=== PATIENT | male | born 1960 | race Two or more races ===

== ENCOUNTER 2019-12-20 00:49 | Emergency (ER) | payer BC ==
[2019-12-20 01:29] LABS: CHLORIDE,CL 102 mEq/L (98-106); SODIUM,NA 139 mEq/L (136-145)
--- NOTE | 2019-12-20 01:49 | EDM.PDOC ---
ED HPI GENERAL MEDICAL PROBLEM - General Chief Complaint: General Stated Complaint: palpitations Time Seen by Provider: 12/20/19 01:15 Source of Information: Reports: Patient History Limitations: Reports: No Limitations - History of Present Illness INITIAL COMMENTS - FREE TEXT/NARRATIVE: Jarrod is a pleasant 59 yo male who presents to the ED with concerns of his heart beating fast this evening. He states symptoms started around midnight when he laid down to go to sleep. States he had 3 episodes that each lasting less than 10 seconds. Admits he sat up between each episode and it would immediately go away. He questions if it is his pillow as it isn't very thick. States since the 3rd episode he hasn't had any symptoms since. Denies any shortness of breath or chest pain. No discomfort when he was symptomatic. States he does have a history of high blood pressure and cholesterol, which he is medically treated for. Has no known history of heart disease. Denies ever being a smoker or drinker. Overall, states he lives a healthy lifestyle. Denies any family history of heart disease. Denies any caffeine use, no coffee or soda. States he typically drinks water or juices. Denies any history of anxiety but admits when he was laying down he had been thinking of his brother who had a few months ago. Onset Date: 12/20/19 Onset Time: 00:00 Duration: Resolved Prior to Arrival Improves with: Reports: Movement Worsens with: Reports: Immobilization Associated Symptoms: Reports: No Other Symptoms - Related Data Allergies Allergy/AdvReac Type Severity Reaction Status Date / Time No Known Allergies Allergy Verified 12/20/19 00:51 Home Meds: Home Meds Aspirin [Aspirin EC] 81 mg PO DAILY 12/20/19 [History] Losartan [Cozaar] 50 mg PO DAILY 12/20/19 [History] Simvastatin 20 mg PO DAILY 12/20/19 [History] amLODIPine [Norvasc] 5 mg PO DAILY 12/20/19 [History] hydroCHLOROthiazide [Hydrochlorothiazide] 25 mg PO DAILY 12/20/19 [History] Past Medical History HEENT History: Reports: None Cardiovascular History: Reports: High Cholesterol, Hypertension Respiratory History: Reports: None Gastrointestinal History: Reports: None Genitourinary History: Reports: None Musculoskeletal History: Reports: None Neurological History: Reports: None Psychiatric History: Reports: None - Past Surgical History GI Surgical History: Reports: Hernia Repair/Other Social & Family History - Family History Family Medical History: Noncontributory - Tobacco Use Smoking Status *Q: Never Smoker Second Hand Smoke Exposure: No - Caffeine Use Caffeine Use: Reports: None - Alcohol Use Alcohol Use History: No - Recreational Drug Use Recreational Drug Use: No Drug Use in Last 12 Months: No - Living Situation & Occupation Living situation: Reports: Single Occupation: Retired ED ROS GENERAL - Review of Systems Review Of Systems: See Below Constitutional: Reports: No Symptoms HEENT: Reports: No Symptoms Respiratory: Denies: Shortness of Breath, Wheezing, Pleuritic Chest Pain, Cough Cardiovascular: Reports: Blood Pressure Problem, Palpitations. Denies: Chest Pain, Dyspnea on Exertion, Edema, Lightheadedness, Orthopnea, Syncope GI/Abdominal: Reports: No Symptoms : Reports: No Symptoms Musculoskeletal: Reports: No Symptoms Skin: Reports: No Symptoms Neurological: Reports: No Symptoms. Denies: Dizziness Psychiatric: Reports: No Symptoms ED EXAM, GENERAL - Physical Exam Exam: See Below Exam Limited By: No Limitations General Appearance: Alert, WD/WN, No Apparent Distress Ears: Normal External Exam, Normal Canal, Hearing Grossly Normal, Normal TMs Nose: Normal Inspection, Normal Mucosa, No Blood Throat/Mouth: Normal Inspection, Normal Lips, Normal Teeth, Normal Gums, Normal Oropharynx, Normal Voice, No Airway Compromise Head: Atraumatic, Normocephalic Neck: Normal Inspection, Supple Respiratory/Chest: No Respiratory Distress, Lungs Clear, Normal Breath Sounds, No Accessory Muscle Use Cardiovascular: Normal Peripheral Pulses, Regular Rate, Rhythm, No Edema, No Murmur GI/Abdominal: Normal Bowel Sounds, Soft, Non-Tender, No Organomegaly, No Distention, No Mass Back Exam: Normal Inspection Extremities: Normal Inspection, Non-Tender, No Pedal Edema Neurological: Alert, Oriented, Normal Cognition, No Motor/Sensory Deficits Psychiatric: Normal Affect, Normal Mood Skin Exam: Warm, Dry, Intact, Normal Color, No Rash EKG INTERPRETATION EKG Date: 12/20/19 Time: 00:53 Rhythm: NSR [place]: Normal P-Wave: Present QRS: Normal ST-T: Normal QT: Normal Comparison: NA - No Prior EKG Course - Vital Signs Last Recorded V/S: Last Vital Signs Temp 98 F 12/20/19 01:07 Pulse 72 12/20/19 01:07 Resp 20 12/20/19 01:07 BP 110/70 12/20/19 01:07 Pulse Ox 97 12/20/19 01:07 - Orders/Labs/Meds Orders: Active Orders 24 hr Category Date Time Status Chest 2V [CR] Stat Exams 12/20/19 00:52 Taken Labs: Laboratory Tests 12/20/19 12/20/19 Range/Units 01:05 01:05 WBC 4.5 L (5.0-10.0) 10^3/uL RBC 4.53 (4.50-6.00) 10^6/uL Hgb 13.8 L (14.0-18.0) g/dL Hct 40.1 (40.0-54.0) % MCV 88.5 (82.0-94.0) fL MCH 30.5 (27.0-32.0) pg MCHC 34.4 (33.0-38.0) g/dL RDW Coeff of Ayse 12.1 (11.0-15.0) % Plt Count 226 (150-400) 10^3/uL Neut % (Auto) 58.8 (35-85) % Lymph % (Auto) 26.0 (10-55) % [place] % (Auto) 15.0 (0-16) % Eos % (Auto) 0 (0-5) % Baso % (Auto) 0.2 (0-3) % Neut # (Auto) 2.67 (1.80-7.00) 10^3/uL Lymph # (Auto) 1.18 (1.00-4.80) 10^3/uL [place] # (Auto) 0.68 (0.00-0.80) 10^3/uL Eos # (Auto) 0.00 (0.00-0.45) 10^3/uL Baso # (Auto) 0.01 10^3/uL Sodium 139 (136-145) mEq/L Potassium 3.5 (3.5-5.0) mEq/L Chloride 102 (98-106) mEq/L Carbon Dioxide 28 (21-32) mmol/L BUN 13 (7-18) mg/dL Creatinine 1.2 (0.7-1.3) mg/dL Est Cr Clr Drug Dosing 62.54 mL/min Estimated GFR (MDRD) > 60 (>=60) mL/min Glucose 102 H (75-99) mg/dL Calcium 8.5 (8.4-10.1) mg/dL Total Bilirubin 0.4 (0.0-1.0) mg/dL AST 26 (15-37) U/L ALT 34 (12-78) U/L Alkaline Phosphatase 57 (46-116) U/L Lactate Dehydrogenase 149 (100-190) U/L Creatine Kinase 162 (35-232) U/L Troponin I < 0.017 (0.00-0.06) ng/mL Total Protein 7.5 (6.4-8.2) g/dL Albumin 3.6 (3.4-5.0) g/dL - Radiology Interpretation Free Text/Narrative:: Chest x-ray reviewed and no acute cardiopulmonary disease noted. - Re-Assessments/Exams Free Text/Narrative Re-Assessment/Exam: 12/20/19 01:58 Closely monitored Jarrod on telemetry in the ED with no further episodes of palpitations. No arrhythmias documented or PACs/PVC's. We did attempt positional changes in the ED bed and were unsuccessful of reproducing prior symptoms. Jarrod has been asymptomatic. Departure - Departure Time of Disposition: 02:00 Disposition: Home, Self-Care 01 Clinical Impression: Heart palpitations - Discharge Information Instructions: Palpitations, [id number] Referrals: PCP,None [Primary Care Provider] - Additional Instructions: 1) Unable to recreate symptoms from earlier. 2) If symptoms return, any chest pain, shortness of breath or any concerns at all, recommend returning to ED 3) Continue with current medications as prescribed. 4) Encourage establishing care and scheduling appointment for this week in clinic Sepsis Event Note (ED) - Evaluation Sepsis Screening Result: No Definite Risk - Focused Exam Vital Signs: Vital Signs Temp Pulse Resp BP Pulse Ox 12/20/19 01:07 98 F 72 20 110/70 97 - Problem List & Annotations (1) Heart palpitations SNOMED Code(s): 82418048 Code(s): R00.2 - PALPITATIONS Status: Acute Current Visit: Yes - My Orders Last 24 Hours: My Active Orders 12/20/19 00:52 Chest 2V [CR] Stat - Assessment/Plan Last 24 Hours: My Active Orders 12/20/19 00:52 Chest 2V [CR] Stat Plan: Complete cardiac work up was negative in the ED. We did monitor heart rhythm via telemetry with no heart arrhythmias noted. Jarrod has been asymptomatic in the ED with no further palpitations. Will discharge home at this time with further instructions. Patient verbalized understanding and was in agreement. See additional instructions.
== END 2019-12-20 02:10 | disposition home or self-care (01) ==
LOC: CC.ED 00:49
DX: R00.2 Palpitations (principal); I10 Essential (primary) hypertension; E78.00 Pure hypercholesterolemia, unspecified; Z79.899 Other long term (current) drug therapy; Z79.82 Long term (current) use of aspirin
CPT/HCPCS: 36415; 71046; 80053; 82550; 83615; 84484; 85025; 93005; 99285-25

== ENCOUNTER 2021-04-03 09:44 | Emergency (ER) | payer MEDICAID ==
--- NOTE | 2021-04-03 10:35 | EDM.PDOC ---
ED HPI GENERAL MEDICAL PROBLEM - General Chief Complaint: General Stated Complaint: Right sided pain Time Seen by Provider: 04/03/21 10:15 Source of Information: Reports: Patient, EMS History Limitations: Reports: No Limitations - History of Present Illness INITIAL COMMENTS - FREE TEXT/NARRATIVE: pam is a 61 year old male who presents to ER per EMS with complaints of right side pain. States started about one hour ago. Unsure if pulled something but is concerned as cousin just had to have a appendectomy and is worried has same issue. No fever. No nausea or vomiting. Was able to eat this am. No constipation or blood in his stools. had normal BM this am. Denies burning with urination, hematuria or frequency. Denies chronic back pain or history of abdominal concerns. EMS reports shortness of breath but patient states just got anxious with the pain. Sats are 98% on room air. Onset: Today, Sudden Duration: Hour(s):, Constant Location: Reports: Abdomen, Back Quality: Reports: Ache Severity: Moderate Improves with: Reports: Rest Worsens with: Reports: Other (palpation) Associated Symptoms: Reports: Seizure. Denies: Confusion, Chest Pain, Cough, Fever/Chills, Headaches, Loss of Appetite, Nausea/Vomiting, Shortness of Breath Right Lower Abdomen Pain Score (Numeric/FACES): 4 - Related Data Allergies Allergy/AdvReac Type Severity Reaction Status Date / Time No Known Allergies Allergy Verified 12/20/19 00:51 Home Meds: Home Meds Aspirin [Aspirin EC] 81 mg PO DAILY 12/20/19 [History] Losartan [Cozaar] 50 mg PO DAILY 12/20/19 [History] Simvastatin 20 mg PO DAILY 12/20/19 [History] amLODIPine [Norvasc] 5 mg PO DAILY 12/20/19 [History] hydroCHLOROthiazide [Hydrochlorothiazide] 25 mg PO DAILY 12/20/19 [History] Cholecalciferol (Vitamin D3) [Vitamin D] 1 tab PO DAILY 04/03/21 [History] Past Medical History HEENT History: Reports: None Cardiovascular History: Reports: High Cholesterol, Hypertension Respiratory History: Reports: None Gastrointestinal History: Reports: None Genitourinary History: Reports: None Musculoskeletal History: Reports: None Neurological History: Reports: None Psychiatric History: Reports: Anxiety, Depression - Infectious Disease History Infectious Disease History: Reports: None - Past Surgical History GI Surgical History: Reports: Hernia Repair/Other Social & Family History - Family History Family Medical History: No Pertinent Family History - Tobacco Use Tobacco Use Status *Q: Never Tobacco User - Caffeine Use Caffeine Use: Reports: Soda - Living Situation & Occupation Living situation: Reports: Single Occupation: Retired ED ROS GENERAL - Review of Systems Review Of Systems: See Below Constitutional: Denies: Fever, Chills, Malaise, Weakness, Decreased Appetite HEENT: Denies: Ear Pain, Rhinitis, Sinus Problem, Throat Pain Respiratory: Denies: Shortness of Breath, Cough Cardiovascular: Denies: Chest Pain, Edema, Lightheadedness Endocrine: Denies: Fatigue GI/Abdominal: Reports: Abdominal Pain. Denies: Black Stool, Bloody Stool, Constipation, Diarrhea, Nausea, Vomiting : Reports: Flank Pain. Denies: Dysuria, Frequency Musculoskeletal: Reports: Shoulder Pain, Back Pain Skin: Reports: No Symptoms Neurological: Reports: No Symptoms ED EXAM, GENERAL - Physical Exam Exam: See Below Exam Limited By: No Limitations General Appearance: Alert, WD/WN, No Apparent Distress Ears: Normal External Exam, Normal TMs Nose: Normal Inspection, Normal Mucosa, No Blood Throat/Mouth: Normal Inspection, Normal Oropharynx Head: Normocephalic Neck: Normal Inspection, Supple, Non-Tender Respiratory/Chest: No Respiratory Distress, Lungs Clear, Normal Breath Sounds Cardiovascular: Regular Rate, Rhythm GI/Abdominal: Normal Bowel Sounds, Soft, Tender (right lateral/more posterior back region). No: Guarding, Rebound Extremities: Normal Inspection, No Pedal Edema Neurological: Alert, Oriented Skin Exam: Warm, Dry Course - Vital Signs Last Recorded V/S: Last Vital Signs Temp 97.7 F 04/03/21 10:00 Pulse 70 04/03/21 10:00 Resp 17 04/03/21 10:00 BP 147/90 H 04/03/21 10:00 Pulse Ox 96 04/03/21 10:00 - Orders/Labs/Meds Orders: Active Orders 24 hr Category Date Time Status Abdomen 2V AP Flat Upright [CR] Stat Exams 04/03/21 10:14 Ordered Labs: Laboratory Tests 04/03/21 04/03/21 04/03/21 Range/Units 10:20 10:20 10:20 WBC 4.3 (4.0-11.0) 10^3/uL RBC 4.93 (4.50-6.00) x10^6/uL Hgb 15.0 (14.0-18.0) g/dL Hct 43.4 (42.0-52.0) % MCV 88.0 (83.0-97.0) fL MCH 30.4 (27.0-32.0) pg MCHC 34.6 (32.0-36.0) g/dL RDW Coeff of Ayse 11.9 (11.0-15.0) % Plt Count 231 (150-400) 10^3/uL Immature Gran % (Auto) 0.2 (0.0-4.9) % Neut % (Auto) 68.0 (41-71) % Lymph % (Auto) 22.0 L (24-44) % [place] % (Auto) 9.3 (0-10) % Eos % (Auto) 0.0 (0-6) % Baso % (Auto) 0.5 (0-1) % Neut # (Auto) 2.91 (1.80-8.00) x10^3/uL Lymph # (Auto) 0.94 (0.60-5.00) 10^3/uL [place] # (Auto) 0.40 (0.00-1.50) 10^3/uL Eos # (Auto) 0.00 (0.00-1.50) 10^3/uL Baso # (Auto) 0.02 (0.00-0.50) 10^3/uL Immature Gran # (Auto) 0.01 (0.00-0.49) 10^3/uL Sodium 141 (136-145) mEq/L Potassium 3.5 (3.5-5.0) mEq/L Chloride 104 (98-106) mEq/L Carbon Dioxide 30 (21-32) mmol/L BUN 13 (7-18) mg/dL Creatinine 1.0 (0.7-1.3) mg/dL Est Cr Clr Drug Dosing 73.15 mL/min Estimated GFR (MDRD) > 60 (>=60) mL/min Glucose 116 H (75-99) mg/dL Calcium 8.5 (8.4-10.1) mg/dL Total Bilirubin 0.5 (0.0-1.0) mg/dL AST 23 (15-37) U/L ALT 34 (12-78) U/L Alkaline Phosphatase 65 (46-116) U/L C-Reactive Protein < 0.2 L (0.2-0.8) mg/dL Total Protein 8.0 (6.4-8.2) g/dL Albumin 4.0 (3.4-5.0) g/dL Urine Color Yellow (YELLOW) Urine Appearance Clear (CLEAR) Urine pH 6.0 (4.5-8.0) Ur Specific [place] 1.015 (1.003-1.020) Urine Protein Negative (NEGATIVE) mg/dL Urine Glucose (UA) Negative (NEGATIVE) mg/dL Urine Ketones Negative (NEGATIVE) mg/dL Urine Occult Blood Negative (NEGATIVE) Urine Nitrite Negative (NEGATIVE) Urine Bilirubin Negative (NEGATIVE) Urine Urobilinogen 0.2 (0.2-1.0) EU/dL Ur Leukocyte Esterase Negative (NEGATIVE) - Re-Assessments/Exams Free Text/Narrative Re-Assessment/Exam: 04/03/21 10:56 Labs, xray are all unremarkable. Discussed with patient. Advised to return if develop fever, vomiting, anorexia or worsening pain. Departure - Departure Time of Disposition: 10:58 Disposition: Home, Self-Care 01 Condition: Good Clinical Impression: Flank pain - Discharge Information *PRESCRIPTION DRUG MONITORING PROGRAM REVIEWED*: No *COPY OF PRESCRIPTION DRUG MONITORING REPORT IN PATIENT SYLVAIN: No Instructions: Flank Pain, Adult, [id number] Forms: ED Department Discharge Additional Instructions: 1. Push fluids 2. Alternate tylenol with ibuprofen for fever or discomfort 3. Flexeril 10 mg every 8 hours as needed for muscle spasms 4. Biofreeze to affected area as needed 5. Return if increasing pain, fevers, nausea and vomiting or inability to eat. 6. Call with any questions or concerns. Sepsis Event Note (ED) - Evaluation Sepsis Screening Result: No Definite Risk - Focused Exam Vital Signs: Vital Signs Temp Pulse Resp BP Pulse Ox 04/03/21 10:00 97.7 F 70 17 147/90 H 96 - My Orders Last 24 Hours: My Active Orders 04/03/21 10:14 Abdomen 2V AP Flat Upright [CR] Stat - Assessment/Plan Last 24 Hours: My Active Orders 04/03/21 10:14 Abdomen 2V AP Flat Upright [CR] Stat
[2021-04-03 10:42] LABS: CHLORIDE,CL 104 mEq/L (98-106); SODIUM,NA 141 mEq/L (136-145)
== END 2021-04-03 11:00 | disposition home or self-care (01) ==
LOC: CC.ED 09:44
DX: R10.9 Unspecified abdominal pain (principal); E78.00 Pure hypercholesterolemia, unspecified; I10 Essential (primary) hypertension; Z79.82 Long term (current) use of aspirin; Z79.899 Other long term (current) drug therapy
CPT/HCPCS: 36415; 74019; 80053; 81003; 85025; 86140; 99284

== ENCOUNTER 2022-03-12 10:24 | Emergency (ER) | payer MEDICAID ==
[2022-03-12 10:54] VITALS: BP 140/81; PULSE 86
== END 2022-03-12 11:41 | disposition home or self-care (01) ==
LOC: CC.ED 10:24
DX: S43.401A Unspecified sprain of right shoulder joint, initial encounter (principal); E78.00 Pure hypercholesterolemia, unspecified; I10 Essential (primary) hypertension; Z79.82 Long term (current) use of aspirin; Z79.899 Other long term (current) drug therapy
CPT/HCPCS: 73030-RT; 99283

== ENCOUNTER 2023-06-27 09:04 | Emergency (ER) | payer MEDICAID ==
[2023-06-27] MEDS: Orphenadrine 60 MG/2 ML Inj IM ONE (09:59)
[2023-06-27] MEDS: Ketorolac 30 MG/ML SDV IM ONE (10:00)
== END 2023-06-27 10:10 | disposition home or self-care (01) ==
LOC: CC.ED 09:04
DX: S16.1XXA Strain of muscle, fascia and tendon at neck level, initial encounter (principal); I10 Essential (primary) hypertension; E78.00 Pure hypercholesterolemia, unspecified; Z79.82 Long term (current) use of aspirin; Z79.899 Other long term (current) drug therapy; X58.XXXA Exposure to other specified factors, initial encounter
CPT/HCPCS: 96372; 99283; J1885; J2360

== ENCOUNTER 2023-11-23 06:05 | Emergency (ER) | payer MEDICAID ==
[2023-11-23] MEDS: diphenhydrAMINE 50 MG/ML SDV IM ONE (06:44)
== END 2023-11-23 06:50 | disposition home or self-care (01) ==
LOC: CC.ED 06:05
DX: S40.862A Insect bite (nonvenomous) of left upper arm, initial encounter (principal); S40.861A Insect bite (nonvenomous) of right upper arm, initial encounter; S30.860A Insect bite (nonvenomous) of lower back and pelvis, initial encounter; S20.469A Insect bite (nonvenomous) of unspecified back wall of thorax, initial encounter; E78.00 Pure hypercholesterolemia, unspecified; I10 Essential (primary) hypertension; Z79.82 Long term (current) use of aspirin; Z79.899 Other long term (current) drug therapy; W57.XXXA Bitten or stung by nonvenomous insect and other nonvenomous arthropods, initial encounter
CPT/HCPCS: 96372; 99282; J1200

== ENCOUNTER 2024-08-07 04:06 | Emergency (ER) | payer MEDICAID | END 2024-08-07 05:10 | disposition home or self-care (01) | LOC: CC.ED 04:06 | DX: G47.30 Sleep apnea, unspecified (principal); I10 Essential (primary) hypertension; E78.00 Pure hypercholesterolemia, unspecified; Z79.899 Other long term (current) drug therapy; Z79.82 Long term (current) use of aspirin; Z79.1 Long term (current) use of non-steroidal anti-inflammatories (NSAID) | CPT/HCPCS: 93005; 93010; 99284 ==

== ENCOUNTER 2024-10-05 11:00 | Emergency (ER) | payer MEDICAID ==
[2024-10-05 11:30] LABS: BASOPHILS ABSOLUTE AUTO 0.02 10^3/uL (0.00-0.50); BASOPHILS PERCENT AUTO 0.1 % (0-1); HEMATOCRIT 41.4 % (42.0-52.0); HEMOGLOBIN 13.9 g/dL (14.0-18.0); IMMATURE GRAN ABSOLUTE AUTO 0.35 10^3/uL (0.00-0.49); IMMATURE GRAN PERCENT AUTO 1.9 % (0.0-4.9); LYMPHOCYTES ABSOLUTE AUTO 1.39 10^3/uL (0.60-5.00); LYMPHOCYTES PERCENT AUTO 7.6 % (24-44); MEAN CORPUSCULAR HEMOGLOBIN 29.9 pg (27.0-32.0); MEAN CORPUSCULAR HGB CONC 33.6 g/dL (32.0-36.0); MONOCYTES ABSOLUTE AUTO 1.19 10^3/uL (0.00-1.50); MONOCYTES PERCENT AUTO 6.5 % (0-10); NEUTROPHILS ABSOLUTE AUTO 15.24 x10^3/uL (1.80-8.00); NEUTROPHILS PERCENT AUTO 83.9 % (41-71); PLATELET COUNT,PLT 191 10^3/uL (150-400); RED BLOOD CELL COUNT 4.65 x10^6/uL (4.50-6.00); WHITE BLOOD CELL COUNT,WBC 18.2 10^3/uL (4.0-11.0)
[2024-10-05 11:43] VITALS: BP 144/74; PULSE 108
[2024-10-05 11:49] LABS: ALBUMIN 3.4 g/dL (3.4-5.0); BILIRUBIN TOTAL 0.7 mg/dL (0.0-1.0); C-REACTIVE PROTEIN 29.81 mg/dL (<=0.50); CALCIUM 9.4 mg/dL (8.4-10.1); CREATININE 1.3 mg/dL (0.7-1.3); EST CRCL DRUG DOSING (CG) 55.9 mL/min; POTASSIUM,K 3.5 mEq/L (3.5-5.0)
== END 2024-10-05 12:12 | disposition home or self-care (01) ==
LOC: CC.ED 11:00
DX: J18.9 Pneumonia, unspecified organism (principal); I10 Essential (primary) hypertension; E78.00 Pure hypercholesterolemia, unspecified; Z79.899 Other long term (current) drug therapy; Z79.82 Long term (current) use of aspirin
CPT/HCPCS: 36415; 71046; 80053; 84484; 85025; 86140; 87426-QW; 93005; 99284

== ENCOUNTER 2025-04-05 14:35 | Emergency (ER) | payer MEDICAID | END 2025-04-05 15:34 | disposition home or self-care (01) | LOC: CC.ED 14:35 | DX: R29.818 Other symptoms and signs involving the nervous system (principal); I10 Essential (primary) hypertension; E78.00 Pure hypercholesterolemia, unspecified; Z79.82 Long term (current) use of aspirin; Z79.899 Other long term (current) drug therapy | CPT/HCPCS: 93005; 99283; 99284 ==